=== PATIENT | male | born 2000 | race African-American/Black ===

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

== ENCOUNTER 2020-05-11 18:30 | Emergency (ER) | payer OTHER ==
[~2020-05-11] VITALS: Ht 188 cm; Wt 87.6 kg
[2020-05-11 20:20] LABS: BASO % 0.5 % (0.0-1.0); EOS # 0.2 10^3/uL (0.0-0.5); HEMATOCRIT 43.9 % (42.0-52.0); HEMOGLOBIN 14.2 g/dl (13.5-17.5); LYMPH # 3.8 10^3/uL (1.5-5.0); LYMPH % 48.2 % (24.0-44.0); MEAN CORPUSCULAR HEMOGLOBIN 25.4 pg (27.0-33.0); MEAN CORPUSCULAR HGB CONC 32.3 g/dl (32.0-36.5); MEAN CORPUSCULAR VOLUME 78.4 fl (80.0-96.0); MONO # 0.6 10^3/uL (0.0-0.8); MONO % 7.9 % (0.0-5.0); NEUTROPHILS # 3.3 10^3/uL (1.5-8.5); NEUTROPHILS % 41.1 % (36.0-66.0); PLATELET COUNT, AUTOMATED 256 10^3/uL (150-450); WHITE BLOOD COUNT 7.9 10^3/uL (4.0-10.0)
--- NOTE | 2020-05-11 20:21 | REP ---
INDICATION: constipation. COMPARISON: None. TECHNIQUE: Single AP view of the abdomen and pelvis. FINDINGS: The bowel gas pattern is normal. There is a small to moderate volume of fecal residue in the ascending colon and transverse colon. There are no calcifications. Incidental note is made of 6 lumbar segments of the lumbar spine. 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 The skeletal structures and soft tissues otherwise are unremarkable. IMPRESSION: Normal bowel gas pattern. <Electronically signed by Paul Madison > 05/11/20 2017
[2020-05-11 20:52] LABS: ALBUMIN 3.9 GM/DL (3.2-5.2); ALT/SGPT 18 U/L (12-78); BILIRUBIN,DIRECT < 0.1 MG/DL (0.0-0.2); BILIRUBIN,TOTAL 0.2 MG/DL (0.2-1.0); BLOOD UREA NITROGEN 7 MG/DL (7-18); CALCIUM LEVEL 9.9 MG/DL (8.5-10.1); CARBON DIOXIDE LEVEL 30 MEQ/L (21-32); CHLORIDE LEVEL 108 MEQ/L (98-107); CREATININE FOR GFR 0.98 MG/DL (0.70-1.30); GLUCOSE, FASTING 84 MG/DL (70-100); LIPASE 125 U/L (73-393); POTASSIUM SERUM 4.6 MEQ/L (3.5-5.1); SODIUM LEVEL 140 MEQ/L (136-145); TOTAL PROTEIN 7.2 GM/DL (6.4-8.2)
[2020-05-11] MEDS ORDERED: PYRI1TAB5 PO (21:10)
[2020-05-11 21:12] VITALS: BP 142/89
[2020-05-11 22:18] LABS: CHLAMYDIA DNA AMPLIFICATION POSITIVE (NEGATIVE); GC DNA AMPLIFICATION NEGATIVE (NEGATIVE)
== END 2020-05-11 21:28 | disposition home or self-care (01) ==
LOC: M ED 18:30
DX: K59.00 Constipation, unspecified (principal); R30.0 Dysuria

== ENCOUNTER 2020-12-06 11:28 | Emergency (ER) | payer OTHER ==
[~2020-12-06] VITALS: Ht 185.4 cm; Wt 86.1 kg
[~2020-12-06 11:28] MED LIST: PYRI1TAB5 PO
[2020-12-06] MEDS ORDERED: ONDANSETRON 4MG/2ML VIAL IV ONE (12:55)
[2020-12-06 13:28] LABS: BASO % 0.4 % (0.0-1.0); EOS % 0.6 % (0.0-3.0); HEMATOCRIT 42.5 % (42.0-52.0); HEMOGLOBIN 13.9 g/dl (13.5-17.5); LYMPH # 1.5 10^3/uL (1.5-5.0); LYMPH % 28.7 % (24.0-44.0); MEAN CORPUSCULAR HEMOGLOBIN 25.9 pg (27.0-33.0); MEAN CORPUSCULAR HGB CONC 32.7 g/dl (32.0-36.5); MEAN CORPUSCULAR VOLUME 79.3 fl (80.0-96.0); MONO # 0.5 10^3/uL (0.0-0.8); MONO % 10.1 % (2.0-8.0); NEUTROPHILS % 59.8 % (36.0-66.0); PLATELET COUNT, AUTOMATED 211 10^3/uL (150-450); RED BLOOD COUNT 5.36 10^6/uL (4.30-6.10); WHITE BLOOD COUNT 5.1 10^3/uL (4.0-10.0)
[2020-12-06 13:51] LABS: ALBUMIN 3.6 GM/DL (3.2-5.2); ALT/SGPT 24 U/L (12-78); BILIRUBIN,DIRECT 0.1 MG/DL (0.0-0.2); BILIRUBIN,TOTAL 0.8 MG/DL (0.2-1.0); BLOOD UREA NITROGEN 10 MG/DL (7-18); CALCIUM LEVEL 9.2 MG/DL (8.5-10.1); CARBON DIOXIDE LEVEL 25 MEQ/L (21-32); CHLORIDE LEVEL 109 MEQ/L (98-107); CREATININE FOR GFR 0.98 MG/DL (0.70-1.30); GLOMERULAR FILTRATION RATE > 60.0 (>60); GLUCOSE, FASTING 86 MG/DL (70-100); SODIUM LEVEL 140 MEQ/L (136-145); TOTAL PROTEIN 6.7 GM/DL (6.4-8.2)
[2020-12-06] MEDS ORDERED: NS 1,000 ML IV ONE (15:40)
[2020-12-06] MEDS ORDERED: PATIROMER SORBITEX CALCIUM 8.4 GM POWDER PACKET (VELTASSA) PO ONE (16:45)
[2020-12-06] MEDS ORDERED: ONDA4TAB6 PO (16:46)
[2020-12-06 17:01] VITALS: BP 136/85
--- NOTE | 2020-12-06 21:37 | ECGEPIP ---
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 Order Number: [id number] Reading MD: Laura Gutierrez Measurements Intervals Mack Rate: 74 P: -4 AK: 166 QRS: 63 QRSD: 92 T: 35 QT: 346 QTc: 384 Interpretive Statements Normal sinus rhythm ST elevation, probably due to early repolarization No prior Electronically Signed on 12-06-2020 21:36:55 EDT by Laura Gutierrez
== END 2020-12-06 17:26 | disposition home or self-care (01) ==
LOC: M ED 11:28
DX: R11.2 Nausea with vomiting, unspecified (principal); R19.7 Diarrhea, unspecified
CPT/HCPCS: 80048; 80076; 84132; 85025; 93005; 96361; 96374; 99284; J2405

== ENCOUNTER → 2022-06-29 | Outpatient (REF) ==
[~2022-06-29] MED LIST changes: +ONDA4TAB6 PO
== END ==
LOC: M LAB 10:55
PROVIDERS: ATTEND Nurse Practitioner Adult Health
DX: Z02.1 Encounter for pre-employment examination (principal)

== ENCOUNTER 2022-09-09 11:28 | Emergency (ER) | payer OTHER ==
[~2022-09-09] VITALS: Ht 188 cm; Wt 83.0 kg
[2022-09-09 11:29] VITALS: BP 116/66
== END 2022-09-09 14:39 | disposition home or self-care (01) ==
LOC: M ED 11:28
DX: S62.306A Unspecified fracture of fifth metacarpal bone, right hand, initial encounter for closed fracture (principal)